=== PATIENT | male | born 2000 | race Caucasian/White ===

== ENCOUNTER 2020-01-15 19:43 | Emergency (ER) | payer OTHER, SELFPAY ==
[2020-01-15 19:50] VITALS: BP 116/60; PULSE 89; RESP 16; TEMP 36.4; O2SAT 99
--- NOTE | 2020-01-15 19:55 | ED.GENADUL_ITS ---
Discharge Plan Disposition Patient Disposition: HOME Condition: Good Discharge Details Clinical Impression: Ingrowing toenail Primary Care Provider: Guy Samaniego ED Provider: Kendra Abbott Home Meds and New Rx's Prescriptions: No Action No Known Home Meds RF: 0 Discharge Instructions Instructions: Ingrown Nail (ED) Additional Instructions: Your exam does not show any evidence to suggest infection. Is a recurrent issue, I do feel that follow-up with podiatry would be appropriate. We will refer you to podiatry, number listed below. Please soak your foot for 6 times daily. Please continue to promote this to be pulled out as discussed. If you develop fever/chills, increased pain, new/worsening symptom please seek care urgently once again. Otherwise, please follow-up with podiatry and/or primary care within the next 1 to 2 weeks for further evaluation and treatment. Referrals: Guy Samaniego [Primary Care Provider] - Jamel Buchanan DPM [[facility] STAFF PHYSICIAN] - Discharge Data Discharge Date/Time-TO BE ENTERED AT DEPARTURE: 01/15/20 20:20 Medical Decision Making Patient is a 19-year-old male presenting today with chief complaint of ingrown toenail of the right great toe. He reports he has had similar issues historically and has had to have this cut back. He states that he has been trying to cut the nail back himself. Has not soaked this. Is not been using OTC medications. Denies any fevers or chills. Exam shows some soft tissue swelling the medial aspect of the right great toenail and a significantly angled cut of the nail itself. No erythema, warmth, drainage. No evidence of infection. This area is tender to palpation. As this is a recurrent issue for the patient I feel that he would be better served with podiatry. Did not see any need for emergent intervention on this today. I encouraged warm soaks 4-6 times daily. Advised Tylenol and ibuprofen as needed for discomfort. We also discussed nail care and to try to stop cutting back at the angle. Return precautions were discussed, particular signs of infection. All questions concerns were addressed and he is agreement this plan. HPI General Mode of arrival: ambulatory . Date/Time Provider Initiated Documentation: 01/15/20 19:55 . Limitations to Documentation: no limitations . Information obtained by: patient and RN notes reviewed . History of Present Illness 19 year old M presents to the emergency department with the chief complaint of Ingrown toenail, described as severe, with intensity rated at 9. Quality is described as stabbing, and is localized to the right and lower extremity. Patient reports no radiation. Patient started experiencing this month(s) (2) and it has been constant. Immobilization improves symptom(s), Movement worsens symptoms . Patient notes no other symptoms.. Patient did receive the following treatments prior to arrival, none Related Data Home Medications Medication Instructions Recorded Confirmed Unknown [No Known Home Meds] 01/15/20 01/15/20 Allergies Allergy/AdvReac Type Severity Reaction Status Date / Time No Known Allergies Allergy Unverified 01/15/20 19:55 General Stated Complaint: Orthopedic NOELLE: 5 Review of Systems Constitutional Constitutional: Reports as per HPI, Denies chills, Denies fever(s), Denies headache(s) and Denies weakness ENT Ears, Nose, Mouth, and Throat: Denies headache(s) Cardiovascular Cardiovascular: Reports as per HPI Respiratory Respiratory: Reports as per HPI and Denies cough Musculoskeletal Musculoskeletal: Reports as per HPI and Denies tingling Integumentary/Breasts Skin/Breast: Reports as per HPI, Denies rash and Denies wounds Neurologic Neurologic: Reports as per HPI, Denies headache(s), Denies tingling, Denies paresthesias and Denies weakness [facility] Social History Smoking/Tobacco Use Status: Never Alcohol Intake: never Substance use type: does not use Do you feel safe at home: Yes Do you feel safe in your relationship?: Yes Exam Const General: cooperative, healthy appearing, comfortable, no acute distress, well developed and well groomed Nutritional Appearance: average body habitus and well nourished Orientation: alert and awake Resp Effort & Inspection: normal respiratory effort, able to speak in complete sentences and no respiratory distress Cardio Rate: regular rate Rhythm: regular rhythm Skin General skin exam: no rashes or lesions noted Lesions: no lesions Rashes: no rashes Trauma: no lacerations or abrasions Neuro General: patient alert and patient awake Cognition: normal cognition Speech: speech normal Gait: normal gait Motor: muscle tone normal throughout Sensory Exam: no sensory deficits noted Extrem Ankle/foot/toe images: 1. Ingrown toenail. Skin around this is slightly swollen but I do not appreciate any erythema, warmth or drainage. Toenail was cut in a significant angle. Psych Appearance: grossly normal and well kempt Mental Status: mental status grossly normal Speech and Movement: speech and movement normal Course Vital Signs Vital signs: Vital Signs Temperature 36.4 C L 01/15/20 19:50 Pulse 89 01/15/20 19:50 Respiratory Rate 16 01/15/20 19:50 Blood Pressure 116/60 01/15/20 19:50 Pulse Oximetry 99 01/15/20 19:50 Temperature 36.4 C L 01/15/20 19:50 Temperature Source Temporal Artery Scan 01/15/20 19:50 Pulse 89 01/15/20 19:50 Respiratory Rate 16 01/15/20 19:50 Respiratory Effort Non-Labored 01/15/20 19:52 Blood Pressure 116/60 01/15/20 19:50 Blood Pressure Position Sitting 01/15/20 19:50 Pulse Oximetry 99 01/15/20 19:50 Oxygen Delivery Method Room Air 01/15/20 19:50 Oxygen Flow Rate 0 01/15/20 19:50 Pain Level 9 01/15/20 19:50
--- NOTE | 2020-01-15 20:18 | NUR.NOTE ---
Nursing Note: faxed referal to podietry 01/15/20
[2020-01-15 20:22] VITALS: BP 116/60; PULSE 89; RESP 16; TEMP 36.4; O2SAT 99
== END 2020-01-15 20:20 | disposition home or self-care (01) ==
PROVIDERS: Emergency Provider Physician Assistant; PCP Neuromusculoskeletal Medicine & OMM
DX: L60.0 Ingrowing nail (principal)
CPT/HCPCS: 99282; 99283